=== PATIENT | female | born 1950 | race Caucasian/White ===

== ENCOUNTER 2025-01-21 10:07 | Outpatient (CLI) | payer OTHER | END 2025-01-21 10:08 | disposition home or self-care (01) | LOC: CSHCT 10:07 | PROVIDERS: ATTEND Internal Medicine | DX: Z12.2 Encounter for screening for malignant neoplasm of respiratory organs (principal); F17.219 Nicotine dependence, cigarettes, with unspecified nicotine-induced disorders; Z12.31 Encounter for screening mammogram for malignant neoplasm of breast; Z78.0 Asymptomatic menopausal state; M81.0 Age-related osteoporosis without current pathological fracture | CPT/HCPCS: 71271; 77063; 77067; 77080 ==